=== PATIENT | female | born 1950 | race Caucasian/White ===

== ENCOUNTER 2022-08-15 08:04 | Inpatient (IN) | payer OTHER, MEDICARE ==
[~2022-08-15] VITALS: Ht 165.1 cm; Wt 77.1 kg
[~2022-08-15 08:04] MED LIST: CEPH500 PO; CYCL10 PO; DULO60 PO; GABA400 PO; TRAM50 PO
[2022-08-15 09:22] LABS: BASOPHILS ABSOLUTE AUTO 0.02 K/mm3 (0.00-0.23); BASOPHILS PERCENT AUTO 0 % (0-2); EOSINOPHILS ABSOLUTE AUTO 0.02 K/mm3 (0.00-0.68); EOSINOPHILS PERCENT AUTO 0 % (0-6); Hematocrit 37.9 % (33.0-51.0); Hemoglobin 12.8 g/dL (11.5-16.0); IMMATURE GRAN ABSOLUTE AUTO 0.13 K/mm3 (0.00-0.10); IMMATURE GRAN PERCENT AUTO 1 % (0-1); LYMPHOCYTES ABSOLUTE AUTO 0.93 K/mm3 (0.84-5.20); LYMPHOCYTES PERCENT AUTO 10 % (21-46); MONOCYTES PERCENT AUTO 6 % (4-13); Mean Corpuscular HGB 29.6 pg (26.0-34.0); Mean Corpuscular HGB Conc 33.8 g/dL (31.5-36.5); Mean Corpuscular Volume 88 fL (80-100); Mean Platelet Volume 11.2 fL (9.1-12.4); NEUTROPHILS ABSOLUTE AUTO 7.89 K/mm3 (1.96-9.15); NEUTROPHILS PERCENT AUTO 82 % (41-73); Platelet Count 172 K/mm3 (150-400); RDW Coefficient Variation 13.5 % (11.7-14.2); RDW Standard Deviation 43.8 fL (35.1-46.3); Red Blood Cell Count 4.33 M/mm3 (3.80-5.20); White Blood Cell Count 9.59 K/mm3 (4.00-11.30)
[2022-08-15 09:37] LABS: Albumin, Blood 2.6 g/dL (3.4-5.0); Albumin/Globulin Ratio 0.6 (0.8-1.8); Bilirubin, Direct 0.4 mg/dL (0.0-0.3); Bilirubin, Indirect 0.5 mg/dL (0.1-0.7); Bilirubin, Total 0.9 mg/dL (0.1-1.0); Bun/Creatinine Ratio 11.9 (12.0-20.0); Calcium, Blood 8.9 mg/dL (8.5-10.1); Creatinine, Blood 0.84 mg/dL (0.40-1.00); Globulin, Blood 4.2 g/dL (2.2-4.0); Magnesium, Blood 2.1 mg/dL (1.6-2.4); Potassium, Blood 2.6 mmol/L (3.5-5.5); Total Protein, Blood 6.8 g/dL (6.4-8.2)
[2022-08-15 15:12] LABS: Source, Urine Clean Catch
[2022-08-15 15:20] LABS: Appearance, Urine Clear (Clear); Blood, Urine 2+ (Neg); Color, Urine Yellow (P-Yellow); Glucose Qualitative, Urine Neg (Neg); Ketones, Urine 1+ (Neg); Leukocyte Esterase, Urine 1+ (Neg); Nitrite, Urine Neg (Neg); Protein, Urine 2+ (Neg); Specific Gravity, Urine 1.015 (1.003-1.022); Urobilinogen, Urine 1+ (Normal)
[2022-08-15 16:05] LABS: Bilirubin, Urine 1+ (Neg)
[2022-08-15 16:06] LABS: Bacteria Few /hpf; Squamous Epithelial Cells Few /hpf (Few)
[2022-08-15 16:07] LABS: Mucus Light (0-Heavy)
--- NOTE | 2022-08-15 18:14 | NUR ---
REPORT RECIEVED FROM ELECTRIC MOTORMAN AT 1415. PT ARRIVED TO PCU AT 1445 VIA GURNEY AND ON 2L NC SATS IN THE 90'S . PT ABLE TO TRANSFER SELF FROM GURNEY TO RESTROOM AND THEN TO PCU BED WITH MODERATE ASSISTANCE, TOLERATED FAIR.
--- NOTE | 2022-08-15 18:41 | NUR ---
1630 PT LEFT ARM BP SOFT WITH A PRESSURE OF 99/64 MAP OF 75. THE NEXT BP TAKEN AT 1645 WAS 77/59 MAP OF 66. RN NOTIFIED BY [employer] OF BP. BP RECHECKED AT 1648 WITH READING OF 82/50 MAP OF 59. BP CUFF REPOSITIONED AND RAN AGAIN AT 164, READING 75/49 MAP OF 58. BP SWITCHED TO RIGHT ARM AT 165 AND RAN AGAIN, READING 85/54 MAP OF 65. RIGHT ARM RECHECKED AT 165 READING 94/46 MAP OF 58. PT HAD NS BOLUS RUNNING WIDE OPEN AT THIS TIME. ELECTRICIAN SECOND INSTRUCTED THIS RN TO CONTACT HOSPITALIST, ATTEMPETED TO CALL, NO ANSWER. ATTEMPTED TO CALL NURSE PRACTIONER AT 165, NO ANSWER. ELECTRICIAN SECOND INFORMED OF NO ASWERS, ELECTRICIAN SECOND NOTIFIED ANOTHER DOCTOR WHO ORDERED MIDODRINE PO AND TO CONTINUE TO MONITOR BP.
[2022-08-16 04:07] LABS: Hemoglobin 10.2 g/dL (11.5-16.0); Mean Corpuscular HGB 29.8 pg (26.0-34.0); Mean Corpuscular HGB Conc 32.9 g/dL (31.5-36.5); Mean Corpuscular Volume 91 fL (80-100); Mean Platelet Volume 10.9 fL (9.1-12.4); Platelet Count 146 K/mm3 (150-400); RDW Standard Deviation 46.6 fL (35.1-46.3); Red Blood Cell Count 3.42 M/mm3 (3.80-5.20); White Blood Cell Count 10.68 K/mm3 (4.00-11.30)
[2022-08-16 04:45] LABS: Bun/Creatinine Ratio 12.9 (12.0-20.0); Calcium, Blood 8.2 mg/dL (8.5-10.1); Creatinine, Blood 0.77 mg/dL (0.40-1.00); Potassium, Blood 3.7 mmol/L (3.5-5.5)
--- NOTE | 2022-08-16 05:32 | NUR ---
SHIFT SUMMARY ASSUMED CARE OF PT AT 1900. PT IS A/OX4. HEART SOUDNS REGULAR. LUNG SOUDNS DIMINISHED AT BASES. PT HAS A DRY NONPRODUCTIVE COUGH. PT WAS ON 3-4L NC T/O THE NIGHT, WHICH SHE STATES SHE ONLY USES SOMETIMES AT HOME WHEN SHE HAS SOB. PT CONTINUED TO HAVE L FLANK AND BACK PAIN. L ABD IS MORE FIRM THAN R. PT MEDICATED WITH OXY WITH GOOD RESULTS. AT AROUND 0000 PT AWOKE SHAKING, SHES STATES THIS IS WHAT WAS HAPPENING AT HOME WHEN SHE GOT A FEVER. ORAL TEMP WAS 102.6, MEDICATED PER EMAR. PT NEEDED ICE THERAPY. AT AROUND [id number] PT WAS HAVING CARDIAC EVENTS SUCH V TACH AND BIGEMINY, AFTER FEVER BROKE AROUND 0300, CARDIAC EVENTS STOPPED. PT REPORTS DIZZINEES T/O THE SHIFT. PT WAS A 1P SBA TO BSC, PT GETS SOB WITH ACTIVTY AND PAIN.
--- NOTE | 2022-08-16 10:59 | NUR ---
PT REPORTS THAT HER HAS NOT BEEN ABLE TO FIND HER ADVANCED DIRECTIVES. PT ASKED WHAT SPECIAL REQUESTS SHE HAS THAT ARE IN HER ADVANCED DIRECTIVES PT RESPONDED "I DON'T WANT TO BE ON LIFE SUPPORT. I DON'T WANT TO BE IN A MEDICINE INDUCED COMA EITHER." PT ALSO STATES "I DONIT WANT TO BE SEDATED WITH LORAZEPAM EITHER." BYRON RN WAS PRESENT FOR A SECOND RN VERIFICATION OF PT'S REQUESTS.
--- NOTE | 2022-08-16 12:16 | NUR ---
New Referral received from pt's RN, to review AD and pt's wishes with her. We may also complete an updated POLST/AD if pt would like to if is unable to find and fax her current AD from [place].
--- NOTE | 2022-08-16 14:19 | NUR ---
PT TEMP OF 101.6 WITH ORAL THERM. PT RECIEVED TYLENOL ROUGHLY 2 HOURS AGO. ICE PACKS APPLIED TO ARM PITS AND BEHIND NECK. WET WASH CLOTH APPLIED TO FOREHEAD.
--- NOTE | 2022-08-16 16:00 | NUR ---
Brief initial visit to pt as she was sleeping when I arrived and appeared profoundly exhausted. Per her request, leydi in the day, we documented her wishes re: code status and level of intervention on a POLST since she did not have a copy of her previously completed AD available to her. Pt confirmed, as she did earlier today that she would like DNR status with limited interventions as outlined on the POLST. Updated RN and POLST form left for Dr signature when rounding next. I had spoken to Dr earlier and obtained orders to change pt's code status to reflect her wishes. Pt vergalized appreciation for getting this done and conversation to review. She listed her Roxanne, Lucrecia, who lives locally as her primary NOK and also her , who resides in [place]. Both were listed with contact info included on back of POLST form. Plan to f/u for more complete assessment if indicated and to get signed POLST scanned into pt's EMR for future reference.
--- NOTE | 2022-08-16 17:51 | NUR ---
SHIFT SUMMARY PT A/OX4 AND COOPERATIVE OF CARE. VSS ATY BEGINING OF SHIFT, BP'S BECAME SOFT AROUNF 1400. PT TEMP ELEVATED AT 99.8F DURING NOON VITALS, TYLENOL GIVEN PER EMAR. PT REPORTED FEELING "HOT" AT 1413, TEMP CHECKED WHICH SHOWED A TEMP OF 100.1. TEMP RECHECKED ORALLY SHOWING A TEMP OF 101.6, ICE PACKS APPLIED BEHIND NECK AND UNDER PT ARMPITS. VS TAKEN AT 1425, PT HR 114, RESP 22, AND BP SOFT 93/53, AND O2 SATS STABLE AT 97%. Q10 MIN VS STARTED. PT HAD BRIEF PERIODS OF HR REACHING 150 AND 170, [employer] NOTIFIED THIS RN, RATE PRINTED AND IN CHART. THIS RN ATTEMPTED TO CONTACT DR AT 1450 ABOUT ABOVE VS AND HIGH HR, NO ANSWER. THIS RN AGAIN CALLED DR AT 1500, DR NOTIFIED. INSTRUCTED RN TO DC MAINTENANCE FLUIDS, GIVE 500ML LR BOLUS WO, AND TO ORDER BLOOD CULTURES IF CULTURES WERE NOT PREVIOUSLY ORDERED. PT HR STABLE TOWARDS END OF SHIFT, TEMP WNL AT 1522, BP'S REMAIN SOFT WITH SBP'S RANGING 90-100'S WITH MAPS REMAINING ABOVE 65. PT REPORTED LEFT FLANK THROUGHOUT SHIFT, TREATED PER EMAR. PALLIATIVE CONSULTED DUE TO CONVERSATION WITH PT ABOUT CODE STATUS, SEE PREVIOUS NOTES. POLST FILLED OUT AND SIGNED BY NEENA TOLEDO IN CHART. CODE STATUS CHANGED TO DNR.
--- NOTE | 2022-08-17 07:35 | NUR ---
AM NOTE... ASSUMED CARE OF PT AT 0700. PT IS A&Ox4. THE PT'S BP AND HR ARE STABLE AT THIS TIME. THE PT WAS ON 3L NC WITH O2 SATS >93% THIS WAS INCREASED TO 4L NC WHEN THE PT SAT UP IN BED AND BECAME SOB WITH O2 SATS AT 86%. L/S COARSE T/O WITH CRACKLES NOTED IN THE BASES. RR IN THE 20'S. THE PT IS IN SR IN THE 80'S-90'S. 1+ EDEMA NOTED TO BLE. BT PRESENT AND HYPERACTIVE, ABD IS SOFT AND NONTENDER TO PALPATION. WILL CONTINUE TO MONITOR.
--- NOTE | 2022-08-17 09:53 | NUR ---
PT UPDATE... THIS RN NOTED THE PT'S O2 SATS HAD DROPPED DOWN TO 80% WIHT A GOOD PLETH. THE PT WAS ON 4L NC, THIS WAS TURNED UP TO 6L NC AND RT WAS CALLED. THE PT WAS PLACED ON A HI FLOW NC UP TO 7L TO KEEP O2 SATS >92%. THE PT WAS GIVEN AN I.S. AND INSTRUCTED ON ITS USE. WILL CONTINUE TO MONITOR.
--- NOTE | 2022-08-17 15:27 | NUR ---
F/u visit made. Pt awake and looks more energetic than during yesterdays visit. She is visiting with her daughter at bedside. Roxanne tells me that her mom came up to be with her after the of Roxanne's in the past month. Pt reports that she felt feverish t/o the night but no reported pain, nausea, distress. had signed POLST form I completed with pt yesterday. Copies sent to MR and provided to pt with original. Copy placed on chart and reviewed with her RN. Pt hopeful for quick resolution of illness and return home to [place] in the next week or two. She has airfare purchased for the of this month. She had no further questions or requests of Palliative Care.
--- NOTE | 2022-08-17 17:52 | NUR ---
SHIFT SUMMARY.... NO ACUTE NEGATIVE CHANGES ASSESSED SINCE PREVIOUS NOTES. THE PT'S TMAX THIS SHIFT WAS 102.5, SHE WAS MEDICATED PER EMAR AND WITH COOL WASH CLOTHS AND ICE PACKS WHICH THE TEMP RESPONDED WELL TO. THE PT'S BP CONTINUES TO BE SOFT WITH SBPs IN THE 90'S MAPS CONTINUE TO BE >65. THE PT HAS BEEN UP TO THE BSC SEVERAL TIMES THIS SHIFT TO VOID, URINE IS A DARK, CLEAR DEVEN. THE PT HAS NOT HAD A BM THIS SHIFT. THE PT HAS BEEN MEDICATED FOR PAIN SEVERAL TIMES THIS SHIFT PER EMAR WITH GOOD RESULTS. THE PT CONTINUES TO BE ON 6L NC WITH O2 SATS >90% HER O2 SATS DROP WITH ACTIVITY BUT RECOVER QUICKLY. CALL LIGHT IN REACH WILL CONTINUE TO MONITOR UNTIL REPORT IS GIVEN TO ONCOMING RN.
--- NOTE | 2022-08-17 19:54 | NUR ---
ASSUMED CARE. AOX3, JUST GOT OFF THE COMMODE. STATES SITTING UP FOR THAT TIME HELPED SOME OF THE PAIN IN HER BACK. REPORTS PAIN IS FLANK BILATERALLY THAT RADIATES ACROSS HER FUSED LUMBAR AREA AND TO THE SIDES. TORDOL HELPED HER THE MOST SO FAR AND HELPED THE FEVER. NO N/V NOTED. DISCUSSED USE OF ICE ON FLANKS TO HELP WITH PAIN MANAGMENT. RECLEINER ALSO TO ROOM TO ASSIST WITH SITTING UP. ABLE TO MAKE NEEDS KNOWN. CURRENTLY SITTING IN BED TALKING WITH FAMILY ON PHONE. CALL LIGHT IS IN REACH.
[2022-08-18 06:15] LABS: BASOPHILS ABSOLUTE AUTO 0.04 K/mm3 (0.00-0.23); BASOPHILS PERCENT AUTO 0 % (0-2); EOSINOPHILS ABSOLUTE AUTO 0.15 K/mm3 (0.00-0.68); EOSINOPHILS PERCENT AUTO 1 % (0-6); Hematocrit 35.7 % (33.0-51.0); Hemoglobin 11.5 g/dL (11.5-16.0); IMMATURE GRAN ABSOLUTE AUTO 0.17 K/mm3 (0.00-0.10); IMMATURE GRAN PERCENT AUTO 1 % (0-1); LYMPHOCYTES ABSOLUTE AUTO 0.82 K/mm3 (0.84-5.20); LYMPHOCYTES PERCENT AUTO 5 % (21-46); MONOCYTES ABSOLUTE AUTO 0.72 K/mm3 (0.16-1.47); MONOCYTES PERCENT AUTO 5 % (4-13); Mean Corpuscular HGB 29.6 pg (26.0-34.0); Mean Corpuscular HGB Conc 32.2 g/dL (31.5-36.5); Mean Corpuscular Volume 92 fL (80-100); NEUTROPHILS ABSOLUTE AUTO 13.71 K/mm3 (1.96-9.15); NEUTROPHILS PERCENT AUTO 88 % (41-73); Platelet Count 248 K/mm3 (150-400); RDW Coefficient Variation 14.6 % (11.7-14.2); RDW Standard Deviation 49.6 fL (35.1-46.3); Red Blood Cell Count 3.88 M/mm3 (3.80-5.20); White Blood Cell Count 15.61 K/mm3 (4.00-11.30)
--- NOTE | 2022-08-18 06:19 | NUR ---
SHIFT SUMMARY: AOX3, ABLE TO MAKE NEEDS KNOWN. JUST WOKE UP THIS AM WITH FULL PANIC ATTACK R/T PAIN RESULTING IN SHIVERING, DESAT IN 80'S ON 10L, TACHYCARDIA IN THE 120'S. PAIN 8/10 AND CLIMBING. WAS PLACED ON A NON-REBREATHER AT 15L AND 15L HFL NOW BACK TO 15L HF NC ONLY WITH SATS IN LOW 90'S, SHIVERING HAS STOPED AND SO HAS THE AUDIABLE WHEEZES. SHE WAS ALSO GIVEN 2 OXYCODONES AND 30ML OF TORDOL. HR STILL ELEVATED IN THE 120'S BUT IS IMPROVING. TEMP ORAL WAS 98.9. FLANK PAIN IS BILATERAL WHICH FLARES UP HER CHRONIC BACK PAIN. LS WERE CLEAR, OCCATIONAL COUGH NOTED. MILD EDEMA TO BLE. POOR APPETITE. ENCOURAGED HER TO TAKE DEEP BREATHES WHICH SHE IS AFRAID DUE TO PAIN. DISCUSSED SPLINTING FOR COUGH AND ANXIETY MANAGEMENT. URINE DEVEN SMALL AMOUNTS. WILL CONTINUE TO MONITOR TILL DAYSHIFT ARRIVES.
[2022-08-18 06:40] LABS: Bun/Creatinine Ratio 16.4 (12.0-20.0); Creatinine, Blood 0.73 mg/dL (0.40-1.00); Potassium, Blood 4.2 mmol/L (3.5-5.5)
--- NOTE | 2022-08-18 09:03 | NUR ---
CARE ASSUMPTION PT ORIENTED, ANXIOUS UPON CARE ASSUMPTION, SITTING ON SIT OF BED D/T FLANK PAIN. MEDICATED RECENTLY BY [facility] NURSE AND NOW STATES 5/10 PAIN. PT C/O OF FEELING WARM, ORAL TEMP 99.3. SINUS TACH UPON ASSESSMENT, HR 100'S. SP02>90% ON 15L HUMIDIFIED NC. PT C/O OF VAGNIAL ITCHING/BURNING. STATES HX OF YEAST INFECTIONS W/ ANTIBIOTIC INTAKE. DENIED BREAKFAST, STATES NO APPETITE. PER [facility] SHIFT REPORT, PT HAS HX OF PEG TUBE D/T NOT EATING AFTER BACK SURGERIES D/T PAIN. CALL LIGHT IN REACH. PT RESTING IN ROOM.
[2022-08-18 10:51] LABS: Base Excess Venous 2.4 mmol/L; Bicarbonate Venous 25.3 mmol/L (24.0-30.0); PCO2 Venous 50.4 mmHg (38-42); pH Blood Venous 7.35 (7.34-7.37)
--- NOTE | 2022-08-18 10:54 | NUR ---
PT UPDATE PT CALLED FOR UPDATE AND TO STATE PT CANNOT TAKE 'ANY GABAPENTIN EXCEPT THE YELLOW CAPSULE'. PT AND PT STATE PT WAS GIVEN DIFFERENT GABAPENTIN AT [facility] WHICH LED TO ALTERED MENTAL STATUS. PT'S DAUGHTER TO BRING IN HOME GABAPENTIN. DISCUSSED W/ MD BIANCHI.
--- NOTE | 2022-08-18 16:48 | NUR ---
shift summary No acute changes since care assumption. Pt alert, oriented. sp02>90% currently on 11L hiflo. bp was soft during shift. no bm this shift. up to bsc to void. medicated for back/flank pain x2 this shift. Slept off and on during day. Call light in reach.
--- NOTE | 2022-08-18 17:39 | NUR ---
UPDATE PT C/O OF VAGINAL ITCHING. CALL PLACED TO MD BIANCHI. MD BIANCHI W/ ORDERS FOR 1X DIFLUCAN. REPORTED PT C/O OF CHILLS, FEELS LIKE FEVER IS STARTING. MD BIANCHI W/ ORDERS FOR REPEAT BLOOD CULTURES.
--- NOTE | 2022-08-19 00:54 | NUR ---
UPDATE: PATIENT STATES EVERYTHING WE'RE DOING IS MAKING HER WORSE SAYING "I WASN'T THIS SICK WHEN I CAME IN." PATIENT WANTS TO SPEAK WITH CASE MANAGEMENT AND GO HOME. EDUCATION PROVIDED. PATIENT IS UNCOMFORTABLE AND WANTS TO TAKE HER HOME GABAPENTIN. PATIENT IS UNHAPPY SHE'S BEEN PRESCRIBED OPIOIDS AND SAYS AT HOME SHE USES MEDICAL MARIJUANA AND TAKES EXTRA GABAPENTIN TO MANAGE HER PAIN. REFUSED TYLENOL OFFERED FOR FEVER AND PAIN. PATIENT UP IN CHAIR WITH CALL LIGHT IN REACH.
--- NOTE | 2022-08-19 02:27 | NUR ---
MD TO BEDSIDE AT THIS TIME. DISCUSSING PAIN MANAGEMENT TECHNIQUES. PATIENT INSISTS HER GRANDSON WILL PICK HER UP IN THE MORNING AND TAKE HER HOME STATING "IT'S BEING IN THIS BED THAT IS COMPRESSING MY LUNGS AND MAKING IT HARD TO BREATHE." TRANSITIONED TO AIRVO AT THIS TIME. PATIENT UPSET HER DRINKING HAS BEEN LIMITED AND WE'RE "KEEPING HER TOO DRY" - REVIEWED ORDERS AND THERE IS NO FLUID RESTRICTION IN PLACE. EDUCATED FLUIDS WERE LIKELY RESTRICTED BECAUSE SHE DESATS WITHOUT THE MASK IN PLACE.
[2022-08-19 05:09] LABS: BASOPHILS ABSOLUTE AUTO 0.02 K/mm3 (0.00-0.23); BASOPHILS PERCENT AUTO 0 % (0-2); EOSINOPHILS ABSOLUTE AUTO 0.07 K/mm3 (0.00-0.68); EOSINOPHILS PERCENT AUTO 1 % (0-6); Hematocrit 26.3 % (33.0-51.0); Hemoglobin 8.7 g/dL (11.5-16.0); IMMATURE GRAN ABSOLUTE AUTO 0.11 K/mm3 (0.00-0.10); IMMATURE GRAN PERCENT AUTO 1 % (0-1); LYMPHOCYTES ABSOLUTE AUTO 0.64 K/mm3 (0.84-5.20); LYMPHOCYTES PERCENT AUTO 6 % (21-46); MONOCYTES PERCENT AUTO 8 % (4-13); Mean Corpuscular HGB 29.8 pg (26.0-34.0); Mean Corpuscular HGB Conc 33.1 g/dL (31.5-36.5); Mean Corpuscular Volume 90 fL (80-100); Mean Platelet Volume 10.9 fL (9.1-12.4); NEUTROPHILS ABSOLUTE AUTO 8.37 K/mm3 (1.96-9.15); NEUTROPHILS PERCENT AUTO 84 % (41-73); Platelet Count 229 K/mm3 (150-400); RDW Coefficient Variation 14.6 % (11.7-14.2); RDW Standard Deviation 48.2 fL (35.1-46.3); Red Blood Cell Count 2.92 M/mm3 (3.80-5.20); White Blood Cell Count 10.01 K/mm3 (4.00-11.30)
[2022-08-19 05:54] LABS: Bun/Creatinine Ratio 14.2 (12.0-20.0); Calcium, Blood 8.1 mg/dL (8.5-10.1); Creatinine, Blood 0.78 mg/dL (0.40-1.00); Magnesium, Blood 1.8 mg/dL (1.6-2.4)
--- NOTE | 2022-08-19 06:37 | NUR ---
SHIFT SUMMARY: PATIENT O2 NEEDS INCREASED T/O NIGHT. PATIENT CURRENTLY ON AIRVO 40L/70% WITH SATS >92% WHEN PRONGS ARE IN NARES. PATIENT FREQUENTLY REMOVES O2 STATING "I DON'T NEED THIS, I CAN DO EVERYTHING." OBTAINED ORDER FOR NASAL SPRAY TO ASSIST WITH NASAL DRYNESS. HOME GABAPENTIN REGIMENT TO START TODAY. PATIENT STILL STATING SHE IS LEAVING AMA TODAY. LABILE IN MOOD. COVID TEST COLLECTED. CALL TO RE: D-DIMER 3.83 AND BNP 276 - RECEIVED ORDERS FOR CT PE STUDY. PATIENT USES CALL LIGHT APPROPRIATELY. UP MULTIPLE TIMES TO [facility] T/O SHIFT. VERY UNCOMFORTABLE IN BED THOUGH SLEPT FOR ~2 HRS AFTER EGG CRATE ADDED TO BED. MEDICATED PER EMAR. BED LOW WITH CALL LIGHT IN REACH. WILL REPORT TO DAY RN.
[2022-08-19 07:11] LABS: Influenza A, PCR NEGATIVE (NEGATIVE); Influenza B, PCR NEGATIVE (NEGATIVE); Resp Syncytial Virus, PCR NEGATIVE (NEGATIVE); SARS-Cov-2 (COVID-19) PCR, MMC NEGATIVE (NEGATIVE)
[2022-08-19 13:00] LABS: Hemoglobin 9.9 g/dL (11.5-16.0)
--- NOTE | 2022-08-19 13:25 | NUR ---
Spiritual Care Attempted - Pt. Request Pt. is soundly asleep. Will return to check on Pt. later in the day.
[2022-08-19 13:45] LABS: Test Name 50641
--- NOTE | 2022-08-19 15:47 | NUR ---
Spiritual Care Visit. Pt. is awake in bed and welcomes my visit. Pt. is pleasant, and is unsettled because of some spiritual confusion and genuine fear. Listened empathetically with a calming presence. Pastoral support is requested by Pt. Pt. held me hand the entire visit. Pt. displayed evidence of reduced anxiety. prayed with Pt. Pt. verbalized gratitude for the spiritual care visit.
[2022-08-19 17:45] LABS: Hematocrit 33.2 % (33.0-51.0); Hemoglobin 10.6 g/dL (11.5-16.0)
--- NOTE | 2022-08-19 17:50 | NUR ---
shift summary Pt alert, daughter and grandson both visited today. sp02>90% currently on airvo, 40l 70%. Telemetry currently shows nsr, hr 100's. Pain well managed today w/ home medication of gabapentin. Pt rates it at a 3/10 and no additional medication coverage needed. Pt up to bsc to void multiple times. Pt taken to CT this morning, slid by 3 staff from pcu bed to ct cart. MD Kirby in room to assess patient. Hospital certified medical asst also in room to visit pt per pt's request. Pt slept off and on during shift. Refusing most of meals, but did drink some ensure and ate some pudding. Call light in reach.
[2022-08-19 20:36] LABS: Hematocrit 30.2 % (33.0-51.0); Hemoglobin 10.1 g/dL (11.5-16.0)
[2022-08-20 01:00] LABS: Hematocrit 30.3 % (33.0-51.0); Hemoglobin 10.1 g/dL (11.5-16.0)
--- NOTE | 2022-08-20 05:40 | NUR ---
SHIFT SUMMARY: PT. REMAINED STABLE THROUGHOUT THE NIGHT, BUT DID HAVE AN INCREASING O2 REQUIREMENT AND WAS UPPED TO 50L 77% ON HIGH FLOW NC. PT. HAS RESPONDED WELL TO THESE CHANGES AND HAS HAD SATS ABOVE 94% FOR THE REST OF THE NIGHT. PT. ALSO BECAME FEBRILE WITH A TEMP OF 101.2, TYLENOL WAS GIVEN. PT. IS OTHERWISE COMFORTABLE AND HAS HER CALL LIGHT WITHIN REACH.
[2022-08-20 06:01] LABS: Base Excess Venous 4.9 mmol/L; Bicarbonate Venous 28.5 mmol/L (24.0-30.0); PCO2 Venous 36.8 mmHg (38-42); pH Blood Venous 7.49 (7.34-7.37)
[2022-08-20 06:20] LABS: BASOPHILS ABSOLUTE AUTO 0.02 K/mm3 (0.00-0.23); BASOPHILS PERCENT AUTO 0 % (0-2); EOSINOPHILS ABSOLUTE AUTO 0.02 K/mm3 (0.00-0.68); EOSINOPHILS PERCENT AUTO 0 % (0-6); Hematocrit 26.1 % (33.0-51.0); IMMATURE GRAN ABSOLUTE AUTO 0.14 K/mm3 (0.00-0.10); IMMATURE GRAN PERCENT AUTO 2 % (0-1); LYMPHOCYTES ABSOLUTE AUTO 0.82 K/mm3 (0.84-5.20); LYMPHOCYTES PERCENT AUTO 10 % (21-46); MONOCYTES ABSOLUTE AUTO 0.75 K/mm3 (0.16-1.47); MONOCYTES PERCENT AUTO 9 % (4-13); Mean Corpuscular HGB 30.5 pg (26.0-34.0); Mean Corpuscular HGB Conc 34.5 g/dL (31.5-36.5); Mean Corpuscular Volume 89 fL (80-100); Mean Platelet Volume 10.5 fL (9.1-12.4); NEUTROPHILS ABSOLUTE AUTO 6.77 K/mm3 (1.96-9.15); NEUTROPHILS PERCENT AUTO 80 % (41-73); Platelet Count 268 K/mm3 (150-400); RDW Coefficient Variation 14.6 % (11.7-14.2); RDW Standard Deviation 47.1 fL (35.1-46.3); Red Blood Cell Count 2.95 M/mm3 (3.80-5.20); White Blood Cell Count 8.52 K/mm3 (4.00-11.30)
[2022-08-20 06:37] LABS: Bun/Creatinine Ratio 11.2 (12.0-20.0); Calcium, Blood 7.5 mg/dL (8.5-10.1); Creatinine, Blood 0.72 mg/dL (0.40-1.00); Potassium, Blood 3.9 mmol/L (3.5-5.5)
--- NOTE | 2022-08-20 07:35 | NUR ---
[facility] [place] upon assessment, pt lethargic/drowsy. States she has to use restroom, then falls back asleep. RT in room, decreased airvo settings to 40L 75% fi02. Applied chin strap to pt to help open airway, pt slept through chin strap placing. bp soft. scds reapplied. Call light in reach.
[2022-08-20 09:42] LABS: Hematocrit 29.6 % (33.0-51.0); Hemoglobin 9.6 g/dL (11.5-16.0)
[2022-08-20 15:44] LABS: Source, Urine Foley catheter
[2022-08-20 15:50] LABS: Appearance, Urine Clear (Clear); Bilirubin, Urine Neg (Neg); Blood, Urine 1+ (Neg); Color, Urine Yellow (P-Yellow); Glucose Qualitative, Urine Neg (Neg); Ketones, Urine 1+ (Neg); Leukocyte Esterase, Urine Neg (Neg); Nitrite, Urine Neg (Neg); Protein, Urine Neg (Neg); Specific Gravity, Urine 1.005 (1.003-1.022); Urobilinogen, Urine NORM (Normal)
[2022-08-20 15:59] LABS: Red Blood Cells, Urine 0-2 /hpf (0-2); White Blood Cells, Urine 0-2 /hpf (0-5)
[2022-08-20 16:00] LABS: Bacteria Rare /hpf; Squamous Epithelial Cells Not Seen /hpf (Few)
--- NOTE | 2022-08-20 16:12 | NUR ---
UPDATE PT WENT TO MRI BY MRI CART THIS AM. ONCE BACK FROM MRI, PT C/O OF NEEDING TO VOID. PT UP TO BSC BUT UNABLE TO VOID. BLADDER SCAN DONE, SHOWED >999. CALL PLACED TO MD ALMAZAN. MD ALMAZAN W/ ORDERS FOR ORELLANA CATHETER. TEMP ORELLANA PLACED, DRAINING TO GRAVITY YELLOW URINE. URINE SENT TO LAB. AND DOG IN ROOM TO VISIT. PT BECAME FEBRILE. TYLENOL GIVEN PER EMAR. ICE APPLIED. BLANKETS REMOVED, ONLY SHEET ON PT. CALL PLACED TO MD ALMAZAN. MD ALMAZAN W/ ORDERS FOR STAT BLOOD CULTURES AND TO REVIEW ANTIBIOTICS AND ORDERS TO MONITOR MAP, SEE NURSE NOTIFY.
--- NOTE | 2022-08-20 18:34 | NUR ---
SHIFT SUMMARY MD ALMAZAN IN ROOM TO DISCUSS MRI RESULTS AND NEED TO TRANSFER TO [facility]. pT'S , DAUGHTER, AND DOG IN ROOM FOR CONVERSATION. PT RECEPTIVE. COBRA TRANSFER PAPERWORK STARTED. WAITING FOR BED PLACEMENT. TEMPERATURE DOWN FROM 103.3 TO 100.5 WITH TYLENOL AND ICE PACKS. MEDICATED PER EMAR FOR PAIN. 1 LITER BOLUS OF LR GIVEN PER EMAR. PT RESTING IN ROOM, SP02>90% ON AIRVO 30L 35%. CALL LIGHT IN REACH.
--- NOTE | 2022-08-20 23:04 | NUR ---
TRANSFER SUMMARY PT COBRA TRANSFER TO [facility] IN [place] FOR SURGERY ON SPINAL ABCESS. PT FLOWN VIA REACH HELICOPTER AT 22:50. REPORT GIVEN TO STEVEN MORALES AT [facility]. PT LOS ARRIVED TO [facility] FROM [place] 30 MINUTES PRIOR TO FLIGHT. DIRECTIONS GIVEN AND HE IS ON THE WAY TO [place]. PT ALERT AND ORIENTED X4. ON 30L 40% FIO2 AIRVO PRIOR TO FLIGHT, SWITCHED OVER TO 15L NONREBREATHER SATS MAINTAINING OVER 90%. TEMP ORELLANA IN PLACE DRAINING YELLOW URINE TO GRAVITY 1L EMPTIED, READING BETWEEN 99.5-100.3 PRIOR TO DEPARTURE. RR 18-20. BP SYSTOLIC 95-100'S. PT HAS BEEN NPO FOR PROCEDURE DURING MY SHIFT. PG FISH PATENT. PT GIVEN DILAUDID 0.5 MG FOR 8/10 BACK PAIN AT 2201. PT REPORTS GABAPENTIN FROM HOSPITAL GIVES REACTION, HAS HOME GABAPENTIN IN BELONGINGS BAG. TRANSFERED OVER TO [facility] AND INTO HELICOPTER IN COMFORTABLE POSITION. [facility] NOTIFIED OF IMPENDING ARRIVAL
== END 2022-08-20 22:58 | disposition short-term general hospital (02) | DRG 871 ==
LOC: ER 08:04 → PCU 13:45
PROVIDERS: Internal Medicine; Nurse Practitioner Acute Care; Student in an Organized Health Care Education/Training Program; ADMIT Internal Medicine
PROC: 3E03329 Introduction of Other Anti-infective into Peripheral Vein, Percutaneous Approach (ICD-10-PCS; principal; 2022-08-15)
PROC: 5A0935A Assistance with Respiratory Ventilation, Less than 24 Consecutive Hours, High Flow/Velocity Cannula (ICD-10-PCS; 2022-08-18)
DX: A41.51 Sepsis due to Escherichia coli [E. coli] (principal); J18.9 Pneumonia, unspecified organism; J96.21 Acute and chronic respiratory failure with hypoxia; J96.22 Acute and chronic respiratory failure with hypercapnia; E87.1 Hypo-osmolality and hyponatremia; M46.24 Osteomyelitis of vertebra, thoracic region; N39.0 Urinary tract infection, site not specified; E87.6 Hypokalemia; R65.20 Severe sepsis without septic shock; D63.8 Anemia in other chronic diseases classified elsewhere; M54.6 Pain in thoracic spine; G89.29 Other chronic pain; F12.10 Cannabis abuse, uncomplicated; Z20.822 Contact with and (suspected) exposure to COVID-19; Z88.2 Allergy status to sulfonamides; Z88.5 Allergy status to narcotic agent; Z98.1 Arthrodesis status; Z79.899 Other long term (current) drug therapy; Z79.2 Long term (current) use of antibiotics; Z79.891 Long term (current) use of opiate analgesic
CPT/HCPCS: 0241U; 36415; 51702; 71045; 71046; 71260; 72156; 72157; 74176; 80048; 80076; 81001; 82803; 83605; 83690; 83735; 83880; 84145; 85014; 85018; 85025; 85027; 85379; 87040; 87086; 93306; 94760; 94762; 96365; 96366; 96368; 96375; 96376; 99285-25; A9270; A9579; C1751; C9113; J0456; J0696; J1170; J1885; J1940; J1956; J2405; J2765; J3475; J3480; J7030; J7050; J7120; Q9967